=== PATIENT | male | born 1940 | race Caucasian/White ===

== ENCOUNTER 2017-11-24 05:21 | Inpatient (IN) | payer MEDICARE, BC ==
[2017-11-24] MEDS ORDERED: LACTATED RINGER'S 1,000 ML IV* (06:00)
[2017-11-24] MEDS: CEFAZOLIN 2 GM/50 ML (PMX) 50 ML IVPB (06:21)
[2017-11-24] MEDS ORDERED: PROPOFOL 100 ML (06:49)
[2017-11-24] MEDS ORDERED: ROCURONIUM 50 MG INJ (06:49)
[2017-11-24] MEDS ORDERED: MIDAZOLAM 1 MG/ML 2 ML INJ (06:49)
[2017-11-24] MEDS ORDERED: CEFAZOLIN 1 GM INJ (07:00)
[2017-11-24] MEDS ORDERED: SUCCINYLCHOLINE CHLORIDE 100 MG/5 ML SYG IV (07:00)
[2017-11-24] MEDS ORDERED: PHENYLephrine (100 MCG/ML) 5ML SYG ×4 (07:19→09:44)
[2017-11-24] MEDS ORDERED: FENTAnyl 50 MCG/ML VIAL IV ×2 (07:30)
[2017-11-24] MEDS ORDERED: LABETALOL HCL 20MG INJ IV (07:30)
[2017-11-24] MEDS ORDERED: METOCLOPRAMIDE 10 MG INJ IV (07:30)
[2017-11-24] MEDS ORDERED: EPHEDrine SULFATE 50 MG/5 ML SYG IV (07:30)
[2017-11-24] MEDS ORDERED: ONDANSETRON 4 MG INJ IV ×2 (07:30→10:30)
[2017-11-24] MEDS ORDERED: LABETALOL HCL 20MG INJ (08:00)
[2017-11-24] MEDS ORDERED: ACETAMINOPHEN 1000MG/100ML IV 100 ML (08:35)
[2017-11-24] MEDS ORDERED: METOCLOPRAMIDE 10 MG INJ (08:35)
[2017-11-24] MEDS ORDERED: DEXAMETHASONE 4 MG/ML 1 ML INJ (08:35)
[2017-11-24] MEDS ORDERED: ONDANSETRON 4 MG INJ (08:35)
[2017-11-24] MEDS: POLYMYXIN/BACITRACIN 1L IRRIG (08:56)
[2017-11-24] MEDS: GELATIN SIZE 100 SPONGE (08:56)
[2017-11-24] MEDS: THROMBIN 5000 UNIT VIAL (08:56)
[2017-11-24] MEDS: BUPIVACAINE 0.5%/EPI (SDV) 30 ML INJ INJ (08:57)
[2017-11-24] MEDS ORDERED: SUGAMMADEX SODIUM 200 MG/2 ML VIAL IV (09:39)
[2017-11-24] MEDS ORDERED: PROCHLORPERAZINE 10 MG TAB PO (10:30)
[2017-11-24] MEDS ORDERED: NALOXONE (0.4 MG/ML) INJ IV (10:30)
[2017-11-24] MEDS ORDERED: ACETAMINOPHEN 325 MG TAB PO (10:30)
[2017-11-24] MEDS ORDERED: TRIMETHOBENZAMIDE 100 MG/ML VIAL IM (10:30)
[2017-11-24] MEDS ORDERED: AL HYDROX/MG HYDROX/SIMETH 30 ML CUP PO (10:30)
[2017-11-24] MEDS ORDERED: NACL 0.9% 3 ML SYG IV (10:30)
[2017-11-24] MEDS ORDERED: DIPHENHYDRAMINE 50 MG CAP PO (10:30)
[2017-11-24] MEDS ORDERED: DIAZEPAM 5 MG/ML SYG IM (10:30)
[2017-11-24] MEDS: FENTAnyl 50 MCG/ML VIAL IV (10:36)
[2017-11-24] MEDS: HYDROmorphONE 0.2 MG/ML PCA IV (10:44)
[2017-11-24] MEDS: MEPERIDINE 25 MG INJ IV (11:04)
[2017-11-24] MEDS: DIPHENHYDRAMINE 50 MG INJ IV (11:49)
[2017-11-24] MEDS: hydrALAzine 20 MG INJ IV (12:20)
[2017-11-24] MEDS: CEFAZOLIN 1 GM/50 ML (PMX) 50 ML IVPB ×2 (12:20→18:00)
[2017-11-24] MEDS: DEXTROSE 5%-0.45% NACL 1,000 ML IV ×2 (12:32→21:29)
[2017-11-24] MEDS: BENAZEPRIL 20 MG TAB PO ×2 (18:46→21:26)
[2017-11-24] MEDS: ATORVASTATIN 40 MG TAB PO (21:26)
[2017-11-24] MEDS: RANITIDINE 150 MG TAB PO (21:26)
[2017-11-24] MEDS: ZOLPIDEM 5 MG TAB PO (21:27)
[2017-11-24] MEDS: HYDROCODONE/APAP (5/325) TAB PO (21:27)
[2017-11-25] MEDS: CEFAZOLIN 1 GM/50 ML (PMX) 50 ML IVPB ×2 (01:04→05:54)
[2017-11-25] MEDS: HYDROCODONE/APAP (5/325) TAB PO ×6 (01:37→22:07)
[2017-11-25] MEDS: PROPRANOLOL 20 MG TAB PO (01:37)
[2017-11-25 05:38] LABS: HEMATOCRIT 30.9 % (42.0-52.0)
[2017-11-25 05:52] LABS: ANION GAP 11 (8-16); BLOOD UREA NITROGEN 16 mg/dl (7-20); CALCIUM 8.4 mg/dl (8.4-10.2); CARBON DIOXIDE 26 mmol/L (21-31); CHLORIDE 110 mmol/L (97-110); CREATININE 0.97 mg/dl (0.61-1.24); GLUCOSE 132 mg/dl (70-220); POTASSIUM 4.2 mmol/L (3.5-5.1); SODIUM 143 mmol/L (135-144)
[2017-11-25] MEDS: DEXTROSE 5%-0.45% NACL 1,000 ML IV ×2 (07:48→16:23)
[2017-11-25] MEDS ORDERED: BETHANECHOL 25 MG TAB PO (08:00)
[2017-11-25] MEDS: RANITIDINE 150 MG TAB PO ×2 (09:00→20:26)
[2017-11-25] MEDS: ASCORBIC ACID 500 MG TAB PO ×2 (09:00→20:26)
[2017-11-25] MEDS: FINASTERIDE 5 MG TAB PO (09:10)
[2017-11-25] MEDS: EZETIMIBE 10 MG TAB PO (09:10)
[2017-11-25] MEDS: FERROUS SULFATE (EC) 325 MG TAB PO ×3 (09:10→20:23)
[2017-11-25] MEDS: DOCUSATE SODIUM 100 MG CAP PO ×2 (09:10→20:23)
[2017-11-25] MEDS: BENAZEPRIL 20 MG TAB PO ×2 (09:11→20:23)
[2017-11-25] MEDS: BETHANECHOL 25 MG TAB PO (09:34)
[2017-11-25] MEDS: ATORVASTATIN 40 MG TAB PO (20:23)
[2017-11-26] MEDS: DIAZEPAM 5 MG TAB PO ×3 (00:06→11:31)
[2017-11-26] MEDS: DEXTROSE 5%-0.45% NACL 1,000 ML IV (02:22)
[2017-11-26] MEDS: HYDROCODONE/APAP (5/325) TAB PO ×2 (05:47→13:54)
[2017-11-26] MEDS: HYDROCODONE/APAP (10/325) TAB PO ×3 (05:47→13:55)
[2017-11-26] MEDS: PROPRANOLOL 20 MG TAB PO (05:52)
[2017-11-26] MEDS: CEPASTAT LOZENGE MT (07:21)
[2017-11-26 07:58] LABS: ADD UMIC NO; UR ASCORBIC ACID NEGATIVE (NEGATIVE); UR BILIRUBIN (Dip) NEGATIVE (NEGATIVE); UR BLOOD (Dip) NEGATIVE (NEGATIVE); UR CLARITY CLEAR (CLEAR); UR COLOR STRAW (YELLOW); UR GLUCOSE (Dip) NEGATIVE (NEGATIVE); UR KETONES (Dip) NEGATIVE (NEGATIVE); UR LEUKOCYTE ESTERASE (Dip) NEGATIVE Leu/ul (NEGATIVE); UR NITRITE (Dip) NEGATIVE (NEGATIVE); UR SPECIFIC GRAVITY (Dip) 1.008 (1.003-1.030); UR TOTAL PROTEIN (Dip) NEGATIVE (NEGATIVE); UR UROBILINOGEN (Dip) NEGATIVE (NEGATIVE)
[2017-11-26] MEDS: EZETIMIBE 10 MG TAB PO (08:43)
[2017-11-26] MEDS: ASCORBIC ACID 500 MG TAB PO (08:43)
[2017-11-26] MEDS: FINASTERIDE 5 MG TAB PO (08:43)
[2017-11-26] MEDS: FERROUS SULFATE (EC) 325 MG TAB PO ×2 (08:43→13:54)
[2017-11-26] MEDS: BENAZEPRIL 20 MG TAB PO (08:44)
[2017-11-26] MEDS: RANITIDINE 150 MG TAB PO (08:44)
[2017-11-26] MEDS: DOCUSATE SODIUM 100 MG CAP PO (08:44)
== END 2017-11-26 15:07 | disposition home or self-care (01) | DRG 517 ==
LOC: REC 05:21 → MS1 11-25 18:15 → REC 06:40 → ICU 12:09
PROC: 01N10ZZ Release Cervical Nerve, Open Approach (ICD-10-PCS; principal; 2017-11-24 07:00)
DX: M48.02 Spinal stenosis, cervical region (principal); E78.5 Hyperlipidemia, unspecified; I10 Essential (primary) hypertension; I25.10 Atherosclerotic heart disease of native coronary artery without angina pectoris; N40.0 Benign prostatic hyperplasia without lower urinary tract symptoms; M19.90 Unspecified osteoarthritis, unspecified site; Z95.1 Presence of aortocoronary bypass graft; Z95.820 Peripheral vascular angioplasty status with implants and grafts
CPT/HCPCS: 72020; 80048; 81003; 85014; 85018; 86850; 86900; 86901; 86920; 87081; 87086; 88304; 88311; 97116; 97163; 97530